=== PATIENT | female | born 1985 | race Caucasian/White ===

== ENCOUNTER 2017-01-06 11:40 | Emergency (ER) | payer BC ==
[2017-01-06 11:41] VITALS: BP 118/81; PULSE 95; RESP 14; TEMP 97.8; O2SAT 99
[2017-01-06 13:27] VITALS: BP 132/82; PULSE 108; RESP 20; O2SAT 99
[2017-01-06 14:08] VITALS: BP 116/82; PULSE 91; RESP 16; O2SAT 98
[2017-01-06] MEDS ORDERED: SODIUM CHLORIDE 0.9% FLUSH 10 ML FLUSH IVF PRN (14:15)
[2017-01-06 14:53] LABS: AUTOMATED NEUTROPHIL # 9.1 TH/MM3 (1.8-7.7); BASOPHIL % 0.2 % (0.0-2.0); EOSINOPHIL % 0.1 % (0.0-4.0); HEMATOCRIT 39.7 % (35.0-46.0); HEMO FLAGS DIFF FINAL; LYMPH % 9.3 % (9.0-44.0); MEAN CELL VOLUME 90.8 FL (80.0-100.0); MEAN CORPUSCULAR HEMOGLOBIN 31.5 PG (27.0-34.0); MEAN CORPUSCULAR HGB CONC 34.7 % (32.0-36.0); MONO % 2.8 % (0.0-8.0); NEUT % 87.6 % (16.0-70.0); PLATELET COUNT 215 TH/MM3 (150-450); RED BLOOD COUNT 4.38 MIL/MM3 (4.00-5.30); RED CELL DISTRIBUTION WIDTH 12.6 % (11.6-17.2); WHITE BLOOD COUNT 10.4 TH/MM3 (4.0-11.0)
[2017-01-06 15:03] LABS: APTT (PATIENT) 26.2 SEC (24.3-30.1); PROTHROMBIN TIME - PATIENT 10.5 SEC (9.8-11.6)
[2017-01-06 15:11] LABS: BICARBONATE 24.7 MEQ/L (21.0-32.0); POTASSIUM 3.6 MEQ/L (3.5-5.1)
--- NOTE | 2017-01-06 16:01 | PD ---
HPI Chief Complaint: Track Man Problem/Complaint Time Seen by Provider: 14:14 Travel History International Travel<30 days: No Contact w/Intl Traveler<30days: No Traveled to known affect area: No History of Present Illness HPI Patient is a 31-year-old female who presents the emergency department approximate 2.5 weeks status post elective termination. Patient was approximately 10 weeks' gestational age with twin . It was recommended that she terminate her given a history of placental abruption with her previous . Patient had suctioned D&C performed on and has been recovering well postoperatively. She's been having scant bleeding, mostly spotting. No pain. Today she developed heavy vaginal bleeding , bright red. She has soaked 3 pads, and is passing clot. No presyncopal symptoms. Patient was sent here by WATER PLUMBER for further management. She sees Dr. Cordova. [facility] Past Medical History Reproductive: Yes (PLACENTAL ABRUPTION) Influenza Vaccination: No ?: Not LMP: 09/2016 : 2 : 1 Past Surgical History Section: Yes Social History Alcohol Use: No Tobacco Use: No Substance Use: No Allergies-Medications (Allergen,Severity, Reaction): Coded Allergies: No Known Allergies (Unverified , 01/06/17) Reported Meds & Prescriptions Reported Meds & Active Scripts Active No Active Prescriptions or Reported Medications Review of Systems Except as stated in HPI: all other systems reviewed are Neg Physical Exam Narrative GENERAL: Well-appearing female in no acute distress SKIN: Focused skin assessment warm/dry. HEAD: Normocephalic. EYES: No scleral icterus. No injection or drainage. ENT: Mucous membranes pink and moist. NECK: Supple CARDIOVASCULAR: Regular rate and rhythm. RESPIRATORY: No accessory muscle use. GASTROINTESTINAL: Abdomen soft, non-tender, nondistended. GENITOURINARY: Normal external female genitalia. Large amount of blood, bright red and clot within the vaginal vault. There is blood per the cervical os. The cervical os is closed. MUSCULOSKELETAL: No obvious deformitiesNo edema. NEUROLOGICAL: Awake and alert. Normal speech. PSYCHIATRIC: Appropriate mood and affect; insight and judgment normal. Data Data Last Documented VS Vital Signs Date Time Temp Pulse Resp B/P Pulse Ox O2 Delivery O2 Flow Rate FiO2 01/06/17 14:08 91 16 116/82 98 Room Air 01/06/17 11:41 97.8 Orders Basic Metabolic Panel (Bmp) (01/06/17 14:14) Complete Blood Count With Diff (01/06/17 14:14) Prothrombin Time / Inr (Pt) (01/06/17 14:14) Act Partial Throm Time (Ptt) (01/06/17 14:14) Type And Screen (01/06/17 14:14) Ecg Monitoring (01/06/17 14:14) Iv Access Insert/Monitor (01/06/17 14:14) Oximetry (01/06/17 14:14) Sodium Chloride 0.9% Flush (Ns Flush) (01/06/17 14:15) Us Pelvis Comp Track Man/Non-Preg (01/06/17 ) Beta Hcg (Quant/Titer) (01/06/17 14:30) Misoprostol (Cytotec) (01/06/17 16:15) Megestrol (Megace) (01/06/17 16:15) Labs Laboratory Tests Test 01/06/17 14:30 White Blood Count 10.4 TH/MM3 Red Blood Count 4.38 MIL/MM3 Hemoglobin 13.8 GM/DL Hematocrit 39.7 % Mean Corpuscular Volume 90.8 FL Mean Corpuscular Hemoglobin 31.5 PG Mean Corpuscular Hemoglobin 34.7 % Concent Red Cell Distribution Width 12.6 % Platelet Count 215 TH/MM3 Mean Platelet Volume 6.4 FL Neutrophils (%) (Auto) 87.6 % Lymphocytes (%) (Auto) 9.3 % Monocytes (%) (Auto) 2.8 % Eosinophils (%) (Auto) 0.1 % Basophils (%) (Auto) 0.2 % Neutrophils # (Auto) 9.1 TH/MM3 Lymphocytes # (Auto) 1.0 TH/MM3 Monocytes # (Auto) 0.3 TH/MM3 Eosinophils # (Auto) 0.0 TH/MM3 Basophils # (Auto) 0.0 TH/MM3 CBC Comment DIFF FINAL Differential Comment Prothrombin Time 10.5 SEC Prothromb Time International 1.0 RATIO Ratio Activated Partial 26.2 SEC Thromboplast Time Sodium Level 138 MEQ/L Potassium Level 3.6 MEQ/L Chloride Level 102 MEQ/L Carbon Dioxide Level 24.7 MEQ/L Anion Gap 11 MEQ/L Blood Urea Nitrogen 8 MG/DL Creatinine 0.63 MG/DL Estimat Glomerular Filtration 110 ML/MIN Rate Random Glucose 96 MG/DL Calcium Level 9.3 MG/DL Human Chorionic Gonadotropin, 104 MIU/ML Quant Blood Type A NEGATIVE Antibody Screen POSITIVE Blood Bank Comment MDM Medical Decision Making Medical Screen Exam Complete: Yes Emergency Medical Condition: Yes Medical Record Reviewed: Yes Differential Diagnosis 31-year-old female approximately 2.5 weeks status post elective suctioned of a 10 week gestational age twin here with heavy vaginal bleeding since this morning. On exam patient does have heavy vaginal bleeding with clot within the vaginal vault. Differential includes retained products of conception , symptomatic anemia, menses. My suspicion for uterine rupture is low as patient has been asymptomatic in the last 2 and half weeks. Clinically there is no evidence of vaginal or cervical laceration. Narrative Course Patient placed on monitor, IV established and blood obtained. CBC, BMP, coags, type and screen, beta Quant were obtained and notable for beta Quant 104. Transvaginal ultrasound showed clot within the uterus but no evidence of retained products. I spoke with Dr. Cordova, patient's WATER PLUMBER who recommended 1000 mg of Cytotec and 60 mg of Megace in an attempt to expel the contents of her uterus without D&C. If patient tolerates this well, home with Megace 40 mg 3 times a day 2 weeks. Diagnosis Primary Impression: Hemometra Referrals: Libby Fernandes MD 1 day Embossing Press Operator Apprentice [address] Cordova her follow-up Additional Instructions: Megace as prescribed. Follow-up with Dr. Cordova as discussed. Med/Other Pt SpecificInfo: Prescription(s) given Scripts Megestrol 40 Mg Tab40 Mg PO TID 14 Days Ref 0 Prov:Maria T Tabor MD 01/06/17 Disposition: DISCHARGE HOME Condition: Stable Maria T Tabor MD Jan 06, 2017 16:01
[2017-01-06] MEDS ORDERED: MISOPROSTOL 100 MCG TAB PO ONE (16:15)
[2017-01-06] MEDS ORDERED: MEGESTROL ACETATE 40 MG TAB PO ONE (16:15)
--- NOTE | 2017-01-06 16:15 | RADRPT ---
EXAM DATE/TIME: 01/06/2017 15:06 [place] COMPARISON: No previous studies available for comparison. INDICATIONS : Evaluate for retained products of conception; status post D and C 12/18/16 now with heavy bleeding. MEDICAL HISTORY : Vaginal bleeding. SURGICAL HISTORY : section. ENCOUNTER: Initial ACUITY: 1 day PAIN SCORE: 3/10 LOCATION: Bilateral pelvis MEASUREMENTS: UTERUS: 9.4 x 6.1 x 5.0 cm ENDOMETRIAL STRIPE: >20 mm RIGHT OVARY: 3.4 x 2.2 x 1.6 cm LEFT OVARY: 2.7 x 3.9 x 1.7 cm FINDINGS: UTERUS: Diffusely thickened heterogeneous endometrial stripe measuring 3.3 cm in AP dimension. No internal co duran Doppler flow is seen with in the endometrial stripe. There is relative increased vascularity of t he anterior myometrium. No anatomy identified. RIGHT OVARY: Ovary contains no mass or significant cystic lesion. LEFT OVARY: Ovary contains no mass or significant cystic lesion. MISCELLANEOUS: Trace free fluid. CONCLUSION: 1. Markedly thickened and heterogeneous endometrial stripe. 2. Nonspecific increased color Doppler flow in the anterior myometrium extending to the margin of the endometrial stripe. Young Escobar MD on January 06, 2017 at 16:10 Board Certified Radiologist. This report was verified electronically.
[2017-01-06] MEDS ORDERED: MEGE40TA PO (17:08)
--- NOTE | 2017-01-06 17:10 | PD ---
Physical Exam Date Seen by Provider: Jan 06, 2017 Time Seen by Provider: 17:09 Narrative The patient is a 31-year-old female was initially evaluated by the previous physician, Dr. Tabor. Please refer to the initial history, physical, diagnostic evaluation, and treatment modality plan. Data Data Last Documented VS Vital Signs Date Time Temp Pulse Resp B/P Pulse Ox O2 Delivery O2 Flow Rate FiO2 01/06/17 18:34 81 14 122/77 96 Room Air 01/06/17 11:41 97.8 Orders Basic Metabolic Panel (Bmp) (01/06/17 14:14) Complete Blood Count With Diff (01/06/17 14:14) Prothrombin Time / Inr (Pt) (01/06/17 14:14) Act Partial Throm Time (Ptt) (01/06/17 14:14) Type And Screen (01/06/17 14:14) Ecg Monitoring (01/06/17 14:14) Iv Access Insert/Monitor (01/06/17 14:14) Oximetry (01/06/17 14:14) Sodium Chloride 0.9% Flush (Ns Flush) (01/06/17 14:15) Us Pelvis Comp Assessment Manager/Non-Preg (01/06/17 ) Beta Hcg (Quant/Titer) (01/06/17 14:30) Misoprostol (Cytotec) (01/06/17 16:15) Megestrol (Megace) (01/06/17 16:15) Labs Laboratory Tests Test 01/06/17 01/06/17 14:30 16:50 White Blood Count 10.4 TH/MM3 Red Blood Count 4.38 MIL/MM3 Hemoglobin 13.8 GM/DL Hematocrit 39.7 % Mean Corpuscular Volume 90.8 FL Mean Corpuscular Hemoglobin 31.5 PG Mean Corpuscular Hemoglobin 34.7 % Concent Red Cell Distribution Width 12.6 % Platelet Count 215 TH/MM3 Mean Platelet Volume 6.4 FL Neutrophils (%) (Auto) 87.6 % Lymphocytes (%) (Auto) 9.3 % Monocytes (%) (Auto) 2.8 % Eosinophils (%) (Auto) 0.1 % Basophils (%) (Auto) 0.2 % Neutrophils # (Auto) 9.1 TH/MM3 Lymphocytes # (Auto) 1.0 TH/MM3 Monocytes # (Auto) 0.3 TH/MM3 Eosinophils # (Auto) 0.0 TH/MM3 Basophils # (Auto) 0.0 TH/MM3 CBC Comment DIFF FINAL Differential Comment Prothrombin Time 10.5 SEC Prothromb Time International 1.0 RATIO Ratio Activated Partial 26.2 SEC Thromboplast Time Sodium Level 138 MEQ/L Potassium Level 3.6 MEQ/L Chloride Level 102 MEQ/L Carbon Dioxide Level 24.7 MEQ/L Anion Gap 11 MEQ/L Blood Urea Nitrogen 8 MG/DL Creatinine 0.63 MG/DL Estimat Glomerular Filtration 110 ML/MIN Rate Random Glucose 96 MG/DL Calcium Level 9.3 MG/DL Human Chorionic Gonadotropin, 104 MIU/ML Quant Blood Type A NEGATIVE Antibody Screen POSITIVE Blood Bank Comment Antibody Identification PASSIVE ANTI-D DUE TO RHOGAM MDM Medical Record Reviewed: Yes Supervised Visit with MARGARET: No Interpretation(s) Laboratory Tests Test 01/06/17 14:30 White Blood Count 10.4 TH/MM3 Red Blood Count 4.38 MIL/MM3 Hemoglobin 13.8 GM/DL Hematocrit 39.7 % Mean Corpuscular Volume 90.8 FL Mean Corpuscular Hemoglobin 31.5 PG Mean Corpuscular Hemoglobin 34.7 % Concent Red Cell Distribution Width 12.6 % Platelet Count 215 TH/MM3 Mean Platelet Volume 6.4 FL Neutrophils (%) (Auto) 87.6 % Lymphocytes (%) (Auto) 9.3 % Monocytes (%) (Auto) 2.8 % Eosinophils (%) (Auto) 0.1 % Basophils (%) (Auto) 0.2 % Neutrophils # (Auto) 9.1 TH/MM3 Lymphocytes # (Auto) 1.0 TH/MM3 Monocytes # (Auto) 0.3 TH/MM3 Eosinophils # (Auto) 0.0 TH/MM3 Basophils # (Auto) 0.0 TH/MM3 CBC Comment DIFF FINAL Differential Comment Prothrombin Time 10.5 SEC Prothromb Time International 1.0 RATIO Ratio Activated Partial 26.2 SEC Thromboplast Time Sodium Level 138 MEQ/L Potassium Level 3.6 MEQ/L Chloride Level 102 MEQ/L Carbon Dioxide Level 24.7 MEQ/L Anion Gap 11 MEQ/L Blood Urea Nitrogen 8 MG/DL Creatinine 0.63 MG/DL Estimat Glomerular Filtration 110 ML/MIN Rate Random Glucose 96 MG/DL Calcium Level 9.3 MG/DL Human Chorionic Gonadotropin, 104 MIU/ML Quant Blood Type A NEGATIVE Antibody Screen POSITIVE Blood Bank Comment Last Impressions Pelvis Ultrasound 01/06/17 0000 Signed Impressions: Service Date/Time: Friday, January 06, 2017 15:06 - CONCLUSION: 1. Markedly thickened and heterogeneous endometrial stripe. 2. Nonspecific increased color Doppler flow in the anterior myometrium extending to the margin of the endometrial stripe. Young Escobar MD Differential Diagnosis Differential diagnosis includes retained products of conception, hemometra, symptomatic anemia, coagulopathy, DIC. Narrative Course The patient was initially evaluated by the previous physician, please refer to the initial history, physical, diagnostic evaluation, treatment modality plan. The patient was signed out at 5 PM with reevaluation at 7 PM pending after patient is administered medications for blood products within the uterus after previous and D&C. The patient was reevaluated at 6 PM, her symptoms had improved, patient will be reevaluated at 7 PM. The patient was reevaluated at 7 PM. She has had no bleeding, we did discuss possibilities including the passage of blood products from the uterus followed by tapering bleeding. She is advised to return for any dizziness, lightheadedness, or persistent heavy vaginal bleeding. She is advised to follow -up with TELEPHONE BETTING CLERK. Diagnosis Primary Impression: Hemometra Referrals: Libby Fernandes MD 1 day Claim Investigator [address] Cordova her follow-up Patient Instructions: General Instructions Additional Instruction: Megace as prescribed. Follow-up with Dr. Cordova as discussed. Med/Other Pt SpecificInfo: Prescription(s) given Scripts Megestrol 40 Mg Tab40 Mg PO TID 14 Days Ref 0 Prov:Maria T Tabor MD 01/06/17 Disposition: 01 DISCHARGE HOME Condition: Stable Zhang Lundy MD Jan 06, 2017 17:10
[2017-01-06 18:34] VITALS: BP 122/77; PULSE 81; RESP 14; O2SAT 96
[2017-01-06 20:19] VITALS: BP 121/63
== END 2017-01-06 20:20 | disposition home or self-care (01) ==
LOC: NEPB 11:40
DX: N85.7 Hematometra (principal)
CPT/HCPCS: 76856; 80048; 84702; 85025; 85610; 85730; 86077; 86850; 86870; 86900; 86901